=== PATIENT | female | born 1945 | race Two or more races ===

== ENCOUNTER 2018-01-16 21:05 | Emergency (ER) | payer OTHER, MEDICAID ==
[~2018-01-16] VITALS: Ht 157.5 cm; Wt 65.3 kg
[~2018-01-16 21:05] MED LIST: LORA10CA7; PATANOL
[2018-01-16 22:50] LABS: Basophils # (auto) 0.1 uL; Basophils % (auto) 0.7 % (0.0-2.0); Eosinophils # (auto) 0.1 uL; Eosinophils % (auto) 0.9 % (0.0-7.0); Hematocrit 44.5 % (36.0-46.0); Lymphocytes # (auto) 3.2 uL; Lymphocytes % (auto) 24.5 % (10.0-50.0); Mean Corpuscular Hemoglobin 31.3 pg (28.0-32.0); Mean Corpuscular Hgb Conc. 33.8 g/dL (32.0-36.0); Mean Corpuscular Volume 92.7 fL (80.0-100.0); Monocytes # (auto) 0.9 uL; Monocytes % (auto) 6.6 % (0.0-12.0); Neutrophils # (auto) 8.7 uL; Neutrophils % (auto) 67.3 % (37.0-80.0); Platelet Count (auto) 278 10^3/uL (140-450); Red Cell Distribution Width 13.1 % (11.8-14.3); White Blood Cell 12.9 10^3/uL (4.4-10.8)
[2018-01-16 22:55] LABS: Urine Bacteria FEW /hpf (None Seen); Urine Blood TRACE /uL (Negative); Urine Specific Gravity 1.023 (1.001-1.035); Urine WBC 36 /hpf (0 - 5)
[2018-01-16 23:11] LABS: Alanine Aminotransferase 22 U/L (13-56); Albumin 3.9 g/dL (3.4-5.0); Alkaline Phosphatase 70 U/L (45-117); Amylase 42 U/L (25-115); Anion Gap 9 (5-15); Aspartate Aminotransferase 14 U/L (15-37); BUN/Creatinine Ratio 15.4; Bilirubin, Total 0.6 mg/dL (0.2-1.0); Blood Urea Nitrogen 16 mg/dL (7-18); Calcium 9.7 mg/dL (8.5-10.1); Carbon Dioxide 26 mmol/L (21-32); Chloride 102 mmol/L (98-107); GFR African American 67 mL/min; GFR Non-African American 56 mL/min; Glucose 116 mg/dL (74-106); Lipase 150 U/L (73-393); Magnesium 2.6 mg/dL (1.6-2.6); Sodium 137 mmol/L (136-145); Total Protein 7.8 g/dL (6.4-8.2)
[2018-01-16 23:23] LABS: INR 0.92 (0.9-1.15); Partial Thromboplastin Time 29.4 sec (23.78-33.04); Prothrombin Time 9.9 sec (9.27-12.13)
[2018-01-17] MEDS ORDERED: KETOROLAC TROMETH 30 MG/ML 1ML VIAL IV ONE (02:15)
[2018-01-17] MEDS ORDERED: PANTOPRAZOLE 40 MG/10 ML VIAL IV ONE (02:15)
[2018-01-17] MEDS ORDERED: cefTRIAXone 1GM/10ml IVPUSH 10 ML IV ONE (02:15)
[2018-01-17] MEDS ORDERED: fentaNYL CITRATE 100 MCG/2 ML VL IV ONE (02:15)
[2018-01-17] MEDS ORDERED: SODIUM CHLORIDE 0.9% 1,000 ML IV ONE (02:15)
[2018-01-17 03:21] VITALS: BP 156/72
== END 2018-01-17 04:10 | disposition home or self-care (01) ==
LOC: ER 21:05
DX: N39.0 Urinary tract infection, site not specified (principal); K21.9 Gastro-esophageal reflux disease without esophagitis; E11.9 Type 2 diabetes mellitus without complications; I10 Essential (primary) hypertension; E07.89 Other specified disorders of thyroid; F17.210 Nicotine dependence, cigarettes, uncomplicated; Z85.3 Personal history of malignant neoplasm of breast
CPT/HCPCS: 36415; 71045; 80053; 81001; 82150; 83690; 83735; 84484; 85025; 85610; 85730; 96361; 96374; 96375; 99285; C9113; J1885; J3010; 93005

== ENCOUNTER 2019-01-27 16:59 | Emergency (ER) | payer OTHER, MEDICAID ==
[~2019-01-27] VITALS: Ht 157.5 cm; Wt 68.9 kg
[2019-01-27 18:23] VITALS: BP 156/64
[2019-01-27] MEDS ORDERED: predniSONE 20 MG TAB PO ONE (18:45)
[2019-01-27] MEDS ORDERED: ACETAMINOPHEN/CODEINE#3 (300/30mg) TAB PO ONE (18:45)
== END 2019-01-27 20:02 | disposition home or self-care (01) ==
LOC: ER 17:11
DX: M12.862 Other specific arthropathies, not elsewhere classified, left knee (principal); E11.9 Type 2 diabetes mellitus without complications; I10 Essential (primary) hypertension; F17.210 Nicotine dependence, cigarettes, uncomplicated; Z86.39 Personal history of other endocrine, nutritional and metabolic disease
CPT/HCPCS: 29505; 73560; 99283; J7512

== ENCOUNTER 2019-08-18 12:30 | Emergency (ER) | payer OTHER, MEDICAID ==
[~2019-08-18] VITALS: Ht 157.5 cm; Wt 71.2 kg
[2019-08-18 14:33] VITALS: BP 167/62
== END 2019-08-18 15:05 | disposition home or self-care (01) ==
LOC: ER 12:30
DX: B02.9 Zoster without complications (principal); E11.9 Type 2 diabetes mellitus without complications; I10 Essential (primary) hypertension; E07.9 Disorder of thyroid, unspecified; F17.210 Nicotine dependence, cigarettes, uncomplicated